=== PATIENT | male | born 1930 | race Caucasian/White ===

== ENCOUNTER 2018-09-27 17:31 | Emergency (ER) | payer OTHER, MEDICAID ==
[~2018-09-27] VITALS: Ht 172.7 cm; Wt 82.1 kg
[~2018-09-27 17:31] MED LIST: AMLO5TAB PO; AMOX500C25 PO; ASPI-1271 PO; BACL10TA4 PO; CIPR500T4 PO; CLOP75TA PO; DICL75EC11 PO; FENO145T PO; LORA10TA19 PO; LOSA100T51 PO; MECL-305 PO; ROSU10TA1 PO
--- NOTE | 2018-09-27 17:35 | NUR ---
PT BIBA ALS TO BED 3
[2018-09-27 17:45] VITALS: BP 109/51
[2018-09-27] MEDS ORDERED: NACL 0.9% 1,000 ML IV ONE (18:19)
[2018-09-27] MEDS ORDERED: ONDANSETRON 4 MG/2 ML VIAL IVP ONE (18:20)
[2018-09-27] MEDS ORDERED: MECLIZINE 25 MG TAB PO ONE (18:20)
[2018-09-27 19:38] LABS: BASOPHILS % (AUTO) 0.1 % (0.0-2.0); EOSINOPHILS % (AUTO) 0.1 % (0.0-4.0); HEMOGLOBIN 12.6 g/dL (12.0-18.0); LYMPHOCYTES # (AUTO) 0.7 K/uL (2.0-11.5); MEAN CORPUSCULAR HEMOGLOBIN 31 pg (27-31); MEAN CORPUSCULAR HGB CONC 34 g/dL (33-37); MEAN CORPUSCULAR VOLUME 91.4 fL (80-94); MONOCYTES # (AUTO) 0.9 K/uL (0.8-1.0); MONOCYTES % (AUTO) 13.4 % (1.7-9.3); NEUTROPHILS # (AUTO) 5.1 K/uL (1.8-7.7); NEUTROPHILS % (AUTO) 76.4 % (42.2-75.2); PLATELET COUNT (AUTO) 231 K/uL (140-450); RED BLOOD CELL COUNT(AUTO) 4.05 MIL/uL (4.20-6.10); RED CELL DISTRIBUTION WIDTH 13.6 % (11.6-13.7); WHITE BLOOD COUNT (AUTO) 6.7 K/uL (4.8-10.8)
[2018-09-27 19:49] LABS: ANION GAP 14.3 (8-16); CARBON DIOXIDE 24.9 mmol/L (21-32); CHLORIDE 108 mmol/L (98-107); CREATININE 1.4 mg/dL (0.7-1.3); GLUCOSE 131 mg/dL (74-106); POTASSIUM 3.2 mmol/L (3.5-5.1); SODIUM SERUM 144 mmol/L (136-145); UREA NITROGEN, BLOOD 27 mg/dL (7-18)
[2018-09-27 19:55] LABS: ASPARTATE AMINOTRANSFERASE 16 U/L (15-37); MAGNESIUM 2.1 mg/dL (1.8-2.4); TOTAL BILIRUBIN 0.5 mg/dL (0.0-1.0)
[2018-09-27 20:18] LABS: APPEARANCE,URINE CLEAR (CLEAR); BILIRUBIN,URINE NEGATIVE (NEGATIVE); BLOOD, URINE NEGATIVE (NEGATIVE); COLOR,URINE YELLOW (YELLOW); LEUKOCYTE ESTERASE ,URINE NEGATIVE (NEGATIVE); NITRITE, URINE NEGATIVE (NEGATIVE); PH,URINE 5.5 (5.0-9.0); UGLUCOSE NEGATIVE (NEGATIVE)
--- NOTE | 2018-09-27 22:03 | NUR ---
Patient discharged with v/s stable. Written and verbal after care instructions given and explained. Patient alert, oriented and verbalized understanding of instructions. Wheel Chair Assisted with to car. All questions addressed prior to discharge. ID band removed. Patient advised to follow up with PMD. Rx of TRAMADOL WAS given. Patient educated on indication of medication including possible reaction and side effects. Opportunity to ask questions provided and answered.
[2018-09-27 22:05] VITALS: BP 137/55
== END 2018-09-27 22:05 | disposition home or self-care (01) ==
LOC: MED 17:31
DX: I95.9 Hypotension, unspecified (principal); R51 Headache; M17.11 Unilateral primary osteoarthritis, right knee; I10 Essential (primary) hypertension; Z79.2 Long term (current) use of antibiotics; Z86.73 Personal history of transient ischemic attack (TIA), and cerebral infarction without residual deficits; Z79.899 Other long term (current) drug therapy; Z79.1 Long term (current) use of non-steroidal anti-inflammatories (NSAID)
CPT/HCPCS: 36415; 70450; 71045; 73562; 80053; 81003; 83735; 84484; 85025; 85379; 93005; 96361; 96374; 99284; J2405; J7030; J8597